=== PATIENT | female | born 2005 | race Caucasian/White ===

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

== ENCOUNTER 2024-01-23 15:34 | Emergency (ER) | payer OTHER, SELFPAY ==
[2024-01-23 15:42] VITALS: BP 137/77; PULSE 74; RESP 16; TEMP 37.1; O2SAT 100
--- NOTE | 2024-01-23 15:47 | ED.FEMALEGU ---
HPI - Female Genitourinary General Chief complaint: Urogenital-Female Stated complaint: Std test Time Seen by Provider: 01/23/24 15:47 Source: patient Mode of arrival: ambulatory Limitations: no limitations History of Present Illness HPI Narrative: 18 yo F presents for STI testing. Pt states has new partner and just wants to be checked . No symptoms. All systems reviewed and negative except as noted above. Related Data Allergies Allergy/AdvReac Type Severity Reaction Status Date / Time No Known Drug Allergies Allergy Unknown Verified 08/25/16 12:10 Review of Systems Review of Systems: CONSTITUTIONAL: Denies fever, chills, or sweats. EYES: Denies visual changes, redness, or discharge. ENT: Denies rhinorrhea, congestion, sore throat, or otalgia. CARDIOVASCULAR: Denies chest pain, palpitations, or edema. RESPIRATORY: Denies cough or dyspnea. GASTROINTESTINAL: Denies abdominal pain, nausea, vomiting, or diarrhea. GENITOURINARY: Denies dysuria or hematuria. SKIN: Denies rash or itching. MUSCULOSKELETAL: Denies back pain, joint pain, or myalgia. NEUROLOGIC: Denies headache, numbness, or weakness. PSYCHIATRIC: Denies anxiety or depression. All other systems reviewed are negative, except as documented in HPI. PMFSH Comments At time of signature, agree with nursing past medical, surgical, social and family history. There is no relevant family history pertinent to the presenting complaint. Exam Narrative: GENERAL: This is a well-nourished, well-developed patient, in no apparent distress. HEAD: normocephalic, atraumatic. EYES: PERRL. Sclera clear/white. Vision is grossly intact. EARS: External ears normal NOSE: External nose normal NECK: Neck supple, non-tender without lymphadenopathy, masses or thyromegaly. CARDIOVASCULAR: Regular rate and rhythm without murmurs, gallops, or rubs. RESPIRATORY: Clear to auscultation. Breath sounds equal bilaterally. No wheezes, rales, or rhonchi. SKIN: warm, Dry, intact with no suspicious lesions or rash, good texture and turgor. NEURO: awake, alert, and oriented to person, place and time. There were no obvious focal neurologic abnormalities. EXTREMITIES: No joint tenderness, effusion, or edema noted. Course Course Level of Care: Express Care Visit Vital Signs Vital signs: Vital Signs Temperature 37.1 C 01/23/24 15:42 Pulse Rate 74 01/23/24 15:42 Respiratory Rate 16 01/23/24 15:42 Blood Pressure 137/77 01/23/24 15:42 Pulse Oximetry 100 01/23/24 15:42 Oxygen Delivery Room Air 01/23/24 15:42 Temperature 37.1 C 01/23/24 15:42 Pulse Rate 74 01/23/24 15:42 Respiratory Rate 16 01/23/24 15:42 Blood Pressure 137/77 01/23/24 15:42 Pulse Oximetry 100 01/23/24 15:42 Oxygen Delivery Room Air 01/23/24 15:42 Reviewed MDM - Female Genitourinary MDM Narrative Medical decision making narrative: Patient is aware of diagnosis, understands and agrees to treatment plan. Anticipatory guidance given. Patient agrees to follow-up as directed and is aware of reasons to seek care at the emergency department. Portions of this record may have been created with voice recognition software asymptomatic. Will wait for results prior to treating with abx. pt agrees with plan of care. Discharge Plan Discharge Clinical Impression: Concern about sexually transmitted disease in female without diagnosis Patient Disposition: Home, Self-Care Condition: Stable Instructions: Sexually Transmitted Diseases (ED) Additional Instructions: Gonorrhea, chlamydia and Trichomonas testing was ordered today. Results will take 48-72 hours. If you have a positive result we will call you at that time and prescribed treatment. 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 Follow-up/Referrals: Buffy,Mac Iverson MD [Primary Care Provider] - Time of Disposition: 15:53
[2024-01-23 20:58] LABS: Trichomonas Vag PCR NOT DETECTED (NOT DETECTE)
[2024-01-23 21:20] LABS: Chlamydia trachomatis NOT DETECTED (NOT DETECTE); Neisseria gonorrhoeae PCR NOT DETECTED (NOT DETECTE)
== END 2024-01-23 15:56 | disposition home or self-care (01) ==
PROVIDERS: Emergency Provider Nurse Practitioner Family; PCP Family Medicine
DX: Z11.3 Encounter for screening for infections with a predominantly sexual mode of transmission (principal)
CPT/HCPCS: 87491; 87591; 87661; 99214; G0463